=== PATIENT | female | born 1950 | race Caucasian/White ===

== ENCOUNTER → 2018-01-27 | Day surgery (SDC) | payer OTHER ==
[~2018-01-27] MED LIST: BALANCED SALT IRRIG PLAIN 500 ML BTL IRR ONE; BUPIVACAINE 0.25% PF 10 ML VIAL ONE; CYCLOPENTOLATE 1% OPTH 2 ML ONE; CYCLOPENTOLATE 1% OPTH 2 ML OPTH ONE; DUOVISC 1 KIT OPTH ONE; EPINEPHRINE/PF 1 MG/ML AMP ONE; LIDOCAINE 1% MPF 5 ML VIAL ONE; LIDOCAINE 2% MPF 5 ML VIAL ONE; MOXIFLOXACIN HCL 10 DROPS/ML **OR USE OPTH ONE; NA CHLORIDE 0.9% 500 ML ONE; NS 0.9% VIAL 10 ML ONE; PHENYLEPHRINE 10% OPTH 5ML ONE; PHENYLEPHRINE 10% OPTH 5ML OPTH ONE; PROPOFOL 200 MG/20 ML VIAL IV ONE; TRYPAN BLUE 0.5 ML SYR OPTH ONE
[2018-01-27] MEDS: TETRACAINE HCL 0.5% 2ML OPTH ONE ×2 (11:58→12:04)
--- NOTE | 2018-01-27 12:41 | P.BOP ---
Preoperative diagnosis: Nuclear sclerotic cataract OS Postoperative diagnosis: Same Primary procedure: Phacoemulsification with IOL OS Estimated blood loss: None Anesthesia: Local (Subtenon's infusion with anesthesia for cataract surgery) Complications: None Implants: ZCB00 +21.0 Transferred to: Other (Day surgery) Condition: Good
--- NOTE | 2018-01-27 23:09 | OP ---
Date of Procedure: 01/27/2018 Surgeon: Tiffanie Reynoso MD Anesthesiologist: 1. Carmen Gordillo CRNA. 2. Darrel Castellanos M.D. Preoperative Diagnosis: Nuclear sclerotic cataract, OS (left eye). Operation Performed: Phacoemulsification with intraocular lens implant, OS (left eye). Anesthesia: Per cataract surgery. Complications: None. Description Of Procedure: In day surgery, the patient was prepped with Betadine and draped. A conju nctival incision was made in the inferior nasal quadrant with Justin scissors. A sub-Tenon block c onsisting of a 1:1 mixture of 2% Xylocaine and 0.25% bupivacaine was placed through the conjunctival incision with a blunt cannula. A Honan balloon was placed over the eye and the patient was transferr ed to the operating room. In the operating room the patient was prepped and draped in the usual sterile fashion for ophthalmic surgery. A lid speculum was placed in the OS. Two paracentesis sites were made superiorly and infer iorly in the limbal cornea. Viscoat was placed in the anterior chamber and a crescent blade was used to make a corneal groove and tunnel, and a keratome was used to enter the anterior chamber. Provisc was placed in the anterior chamber and a 360 degree capsulotomy was performed with a cystitome. The lens was hydrodissected with BSS and rotated freely. The lens was removed with a stop and chop tech nique. A 15.14 phaco CDE was used to remove the lens. Residual cortex was removed with the irrigati on and aspiration. Provisc was placed in the capsular bag. A ZCB00+ 21.0 diopter lens was placed in the capsular bag without complications. Irrigation and aspiration was used to remove residual visco elastic. The paracentesis sites were hydrated with BSS. The wound and paracentesis sites were inspe cted and found to be watertight. Vigamox 0.07 cc was placed intracamerally at the end of the procedu re. The eye was irrigated with balanced salt solution. The eye was patched with a soft cotton patch and Juarez metal shield. The patient was returned to day surgery in good condition. Comments: Intracameral Vigamox was used. The patient states she is allergic to Cipro and that cause s hives, however, she has tolerated topical Zymaxid. Discharge Instructions: Ms. Sanabria is discharged to home in good condition and is to follow up with Dr Brandon Reynoso in the morning. BINTA/ENMANUEL Voice ID: [id number] Report ID: [id number]
== END | disposition home or self-care (01) ==
LOC: OR 09:49
PROVIDERS: ATTEND Ophthalmology Retina Specialist
PROC: 08RK3JZ Replacement of Left Lens with Synthetic Substitute, Percutaneous Approach (ICD-10-PCS; principal; 2018-01-27 11:30)
DX: H25.12 Age-related nuclear cataract, left eye (principal); E11.9 Type 2 diabetes mellitus without complications; E78.00 Pure hypercholesterolemia, unspecified; Z88.6 Allergy status to analgesic agent; Z90.49 Acquired absence of other specified parts of digestive tract; E07.9 Disorder of thyroid, unspecified; F32.9 Major depressive disorder, single episode, unspecified; Z88.3 Allergy status to other anti-infective agents; Z83.511 Family history of glaucoma; Z83.3 Family history of diabetes mellitus; Z80.9 Family history of malignant neoplasm, unspecified; Z82.49 Family history of ischemic heart disease and other diseases of the circulatory system
CPT/HCPCS: 66984; 82962; J0171